=== PATIENT | female | born 1955 | race African-American/Black ===

== ENCOUNTER 2021-04-15 01:21 | Inpatient (IN) | payer MEDICARE, MEDICAID ==
[~2021-04-15] VITALS: Ht 162.6 cm; Wt 71.7 kg
[~2021-04-15 01:21] MED LIST: ASPI-1406; DOCU-138 PO; IBUP-779; SERT25TA74; SIMV-43; TOPUD
[2021-04-15 02:54] LABS: HEMATOCRIT. 39.1 % (36.0-48.0); HEMOGLOBIN. 12.9 g/dL (12.0-16.0); LYMPHOCYTES % 30.8 % (20.0-50.0); MEAN CORPUSCULAR HEMOGLOBIN 31.5 pg (28.0-32.0); MEAN CORPUSCULAR VOLUME 95.6 fL (81.0-99.0); MEAN PLATELET VOLUME 7.9 fl (7.4-10.4); MONOCYTES % 13.5 % (2.0-8.0); NEUTROPHILS % 51.7 % (40.0-76.0); PLATELET 260 x1000/uL (130-400); RED BLOOD CELL COUNT 4.09 mill/uL (4.2-5.4)
[2021-04-15 03:03] LABS: CHLORIDE 108 mEq/L (98-107)
[2021-04-15 03:35] LABS: CLARITY URINE CLEAR (CLEAR); COLOR URINE YELLOW (YELLOW); KETONES URINE NEGATIVE (NEGATIVE); LEUKOCYTE ESTERASE URINE NEGATIVE (NEGATIVE); NITRITE URINE NEGATIVE (NEGATIVE); OCCULT BLOOD URINE NEGATIVE (NEGATIVE); PH URINE 6.5 (4.5-8.0); PROTEIN URINE NEGATIVE (NEGATIVE); SPECIFIC GRAVITY URINE 1.008 (1.005-1.030)
[2021-04-15 03:42] LABS: INR 1.1; PROTHROMBIN TIME 11.9 sec (9.6-11.0)
[2021-04-15] MEDS ORDERED: MORPHINE SULFATE 4 MG/ML CPJ (NOT FOR IM USE) IV ONE (06:30)
[2021-04-15] MEDS ORDERED: MORPHINE SULFATE 2 MG/ML CPJ (NOT FOR IM USE) IV ONE (06:45)
[2021-04-15] MEDS ORDERED: IOHEXOL-350 100 ML BOTTLE ONE (07:38)
[2021-04-15] MEDS ORDERED: CEFTRIAXONE 1 G PREMIX 50 ML IV SCH (08:00)
[2021-04-15] MEDS ORDERED: AZITHROMYCIN 500MG/250ML 250 ML IV SCH (08:00)
[2021-04-15 14:55] VITALS: BP 113/77
[2021-04-15 16:00] VITALS: BP 113/77
[2021-04-15] MEDS ORDERED: CAPE500T15 MT (16:00)
[2021-04-15] MEDS ORDERED: OMEP20CA14 MT (16:00)
[2021-04-15] MEDS ORDERED: LEVA15HF6 IH (16:00)
[2021-04-15] MEDS ORDERED: TUCA150T PO (16:00)
[2021-04-15] MEDS ORDERED: ROSU5TAB MT (16:00)
[2021-04-15] MEDS ORDERED: ACETAMINOPHEN 325MG TABLET PO PRN ×3 (17:00→18:30)
[2021-04-15] MEDS ORDERED: IPRATROPIUM/ALBUTEROL 0.5-3(2.5)MG/3ML NEB HHN PRN (17:00)
[2021-04-15] MEDS: KETOROLAC 15MG/ML VIAL IV PRN ×2 (17:27→17:34)
[2021-04-15] MEDS: PANTOPRAZOLE SODIUM 40 MG/VIAL IV SCH ×2 (17:27→17:34)
[2021-04-15] MEDS: ENOXAPARIN 40MG/0.4ML SYR SUBCUT SCH (17:27)
[2021-04-15] MEDS ORDERED: DOCUSATE SODIUM 100MG CAPSULE PO PRN (18:30)
[2021-04-15] MEDS ORDERED: CLONIDINE 0.1MG TABLET PO PRN (18:30)
[2021-04-15] MEDS ORDERED: NITROGLYCERIN 0.4MG TABLET SL SL PRN (18:30)
[2021-04-15] MEDS ORDERED: GUAIFENESIN 200MG/10ML SUGAR FREE UDC PO PRN (18:30)
[2021-04-15] MEDS ORDERED: TRAMADOL 50MG TABLET PO PRN (18:30)
[2021-04-15] MEDS ORDERED: MAGNESIUM/ALUMINUM HYDROXIDE/SIMETHICONE 30ML UDC PO PRN (18:30)
[2021-04-15] MEDS ORDERED: ONDANSETRON HCL 4MG/2ML INJ IV PRN (18:30)
[2021-04-15] MEDS ORDERED: ZOLPIDEM TARTRATE 5MG TABLET PO PRN (18:30)
[2021-04-15] MEDS ORDERED: IPRATROPIUM/ALBUTEROL 0.5-3(2.5)MG/3ML NEB NEB PRN (18:30)
[2021-04-15 19:21] LABS: TOTAL IRON BINDING CAPACITY 483 ug/dL (250-450)
[2021-04-15 19:39] LABS: FOLIC ACID (FOLATE) SERUM 13.1 ng/mL (>5.38)
[2021-04-15 20:00] VITALS: BP 108/55
[2021-04-15] MEDS: LEVOFLOXACIN 750MG PREMIX 150 ML IV SCH (22:20)
[2021-04-15 23:02] LABS: *AMPHETAMINES SCREEN URINE NEGATIVE (NEGATIVE); *BARBITURATES SCREEN URINE NEGATIVE (NEGATIVE); *BENZODIAZEPINES SCREEN URINE NEGATIVE (NEGATIVE)
[2021-04-15 23:03] LABS: *COCAINE SCREEN URINE NEGATIVE (NEGATIVE); CANNABINOID URINE SCREEN NEGATIVE (NEGATIVE); METHADONE URINE SCREEN NEGATIVE (NEGATIVE); OPIATES URINE SCREEN PRESUMTIVE POSITIVE (NEGATIVE); PHENCYCLIDINE URINE SCREEN NEGATIVE (NEGATIVE)
[2021-04-15] MEDS ORDERED: POTASSIUM CHLORIDE 20MEQ/PACKET PO NR (23:15)
[2021-04-16] VITALS: BP 111/62
[2021-04-16] MEDS: KETOROLAC 15MG/ML VIAL IV PRN (00:05)
[2021-04-16 04:00] VITALS: BP 101/62
[2021-04-16 08:00] VITALS: BP 111/66
[2021-04-16] MEDS: PANTOPRAZOLE SODIUM 40 MG/VIAL IV SCH (08:18)
[2021-04-16] MEDS: ASPIRIN 325MG EC TABLET PO SCH (08:18)
[2021-04-16 08:32] LABS: BASOPHILS % 0.5 % (0.0-2.0); EOSINOPHILS % 2.8 % (0.0-5.0); HEMOGLOBIN. 13.6 g/dL (12.0-16.0); LYMPHOCYTES % 19.5 % (20.0-50.0); MEAN CORPUSCULAR HEMOGLOBIN 31.9 pg (28.0-32.0); MEAN CORPUSCULAR VOLUME 96.5 fL (81.0-99.0); MEAN PLATELET VOLUME 7.4 fl (7.4-10.4); MONOCYTES % 10.2 % (2.0-8.0); PLATELET 282 x1000/uL (130-400); RED BLOOD CELL COUNT 4.25 mill/uL (4.2-5.4); RED CELL DISTRIBUTION WIDTH 21.1 % (11.6-14.6)
[2021-04-16 08:40] LABS: CHLORIDE 107 mEq/L (98-107)
[2021-04-16 08:52] LABS: PHOSPHORUS 4.7 mg/dL (2.5-4.9)
[2021-04-16 08:53] LABS: LDL CHOLESTEROL 86 mg/dL (5-100)
[2021-04-16 08:54] LABS: CREATINE KINASE 81 IU/L (26-192); CREATINE KINASE MB FRACTION 1.9 ng/mL (0.5-3.6); HDL CHOLESTEROL 62 mg/dL (40-59)
[2021-04-16 12:00] VITALS: BP 110/65
[2021-04-16 16:00] VITALS: BP 105/63
[2021-04-16 16:39] LABS: CREATINE KINASE 75 IU/L (26-192)
[2021-04-16 16:41] LABS: CREATINE KINASE MB FRACTION 2.4 ng/mL (0.5-3.6)
[2021-04-16] MEDS: ENOXAPARIN 40MG/0.4ML SYR SUBCUT SCH (17:18)
[2021-04-16] MEDS ORDERED: NALOXONE HCL 0.4MG/ML VIAL IV PRN (17:30)
[2021-04-16] MEDS: LEVOFLOXACIN 750MG PREMIX 150 ML IV SCH (19:33)
[2021-04-16 20:00] VITALS: BP 98/60
[2021-04-17] VITALS: BP 95/68
[2021-04-17 04:00] VITALS: BP 95/52
[2021-04-17] MEDS: FAMOTIDINE 20MG TABLET PO SCH (07:57)
[2021-04-17] MEDS: ASPIRIN 325MG EC TABLET PO SCH (07:57)
[2021-04-17 08:00] VITALS: BP 95/63
[2021-04-17 12:00] VITALS: BP 102/61
[2021-04-17] MEDS: KETOROLAC 15MG/ML VIAL IV PRN (12:42)
[2021-04-17 16:00] VITALS: BP 100/62
[2021-04-17] MEDS: ENOXAPARIN 40MG/0.4ML SYR SUBCUT SCH (18:00)
[2021-04-17] MEDS: LEVOFLOXACIN 750MG PREMIX 150 ML IV SCH (19:46)
[2021-04-17 20:00] VITALS: BP 93/57
[2021-04-18] VITALS: BP 105/64
[2021-04-18 04:00] VITALS: BP 102/65
[2021-04-18 08:00] VITALS: BP 105/64
[2021-04-18] MEDS: FAMOTIDINE 20MG TABLET PO SCH (09:35)
[2021-04-18] MEDS: ASPIRIN 325MG EC TABLET PO SCH (09:35)
[2021-04-18 12:00] VITALS: BP 110/65
[2021-04-18] MEDS: ENOXAPARIN 40MG/0.4ML SYR SUBCUT SCH (18:00)
[2021-04-18 20:00] VITALS: BP 96/58
[2021-04-18] MEDS: LEVOFLOXACIN 750MG PREMIX 150 ML IV SCH (20:42)
[2021-04-18] MEDS: KETOROLAC 15MG/ML VIAL IV PRN (20:42)
[2021-04-19] VITALS: BP 103/66
[2021-04-19 04:00] VITALS: BP 102/62
[2021-04-19 08:09] VITALS: BP 106/67
[2021-04-19] MEDS: FAMOTIDINE 20MG TABLET PO SCH (08:15)
[2021-04-19] MEDS: ASPIRIN 325MG EC TABLET PO SCH (08:15)
[2021-04-19 11:43] VITALS: BP 106/57
== END 2021-04-19 12:35 | disposition home health service (06) | DRG 391 ==
LOC: ER 01:30 → EDBEDREQ 08:08 → 6WST 08:10 → EDBEDREQTM 08:13 → EDBEDREQ 08:13 → EDBEDREQSVC 08:13 → ENRESERV 13:50
PROVIDERS: ADMIT Internal Medicine; ATTEND Internal Medicine
DX: K29.70 Gastritis, unspecified, without bleeding (principal); J18.9 Pneumonia, unspecified organism; C78.00 Secondary malignant neoplasm of unspecified lung; R04.2 Hemoptysis; E87.6 Hypokalemia; E78.00 Pure hypercholesterolemia, unspecified; C50.919 Malignant neoplasm of unspecified site of unspecified female breast; Z88.0 Allergy status to penicillin; Z79.899 Other long term (current) drug therapy; Z79.51 Long term (current) use of inhaled steroids; Z79.82 Long term (current) use of aspirin; Z90.10 Acquired absence of unspecified breast and nipple; Z92.21 Personal history of antineoplastic chemotherapy
CPT/HCPCS: 36415; 71045; 71275; 74177; 80053; 80061; 80305; 81003; 82550; 82553; 82607; 82746; 83540; 83550; 83735; 83880; 84100; 84484; 85025; 87426; 93306; 93970; 97166; 99285; C9113; J0456; J0696; J1650; J1885; J1956; J2270; Q9967

== ENCOUNTER 2024-02-28 16:04 | Emergency (ER) | payer MEDICARE, MEDICAID ==
[~2024-02-28] VITALS: Ht 162.6 cm; Wt 56.0 kg
[~2024-02-28 16:04] MED LIST changes: +CAPE500T15 MT; +LEVA15HF6 IH; +OMEP20CA14 MT; +ROSU5TAB MT; +TUCA150T PO
[2024-02-28 16:08] VITALS: BP 133/74; PULSE 111; RESP 16; TEMP 98; O2SAT 97; O2SAT 99
[2024-02-28 17:20] LABS: BASOPHILS % 0.4 % (0.0-2.0); DIFFERENTIAL COMMENT 0; EOSINOPHILS % 1.1 % (0.0-5.0); HEMOGLOBIN. 12.1 g/dL (12.0-16.0); LYMPHOCYTES % 19.3 % (20.0-50.0); MEAN CORPUSCULAR HEMOGLOBIN 35.8 pg (28.0-32.0); MEAN CORPUSCULAR HGB CONC 33.6 g/dL (31.0-37.0); MEAN CORPUSCULAR VOLUME 106.3 fL (81.0-99.0); MEAN PLATELET VOLUME 7.4 fl (7.4-10.4); MONOCYTES % 10.9 % (2.0-8.0); NEUTROPHILS % 68.3 % (40.0-76.0); PLATELET 411 x1000/uL (130-400); RED BLOOD CELL COUNT 3.39 mill/uL (4.2-5.4); RED CELL DISTRIBUTION WIDTH 18.3 % (11.6-14.6); WHITE BLOOD COUNT 6.2 x1000/uL (4.5-11.0)
[2024-02-28 17:27] LABS: CHLORIDE 105 mEq/L (98-107); POTASSIUM 3.8 mEq/L (3.5-5.1); SODIUM 139 mEq/L (136-145)
[2024-02-28 17:28] LABS: CARBON DIOXIDE 26 mEq/L (21-32)
[2024-02-28 17:29] LABS: CALCIUM 10.3 mg/dL (8.7-10.4)
[2024-02-28 17:33] LABS: GLUCOSE 78 mg/dL (70-105)
[2024-02-28 17:34] LABS: UREA NITROGEN BLOOD 10 mg/dL (9-23)
[2024-02-28 17:35] LABS: ALANINE AMINOTRANSFERASE 10 IU/L (10-49); ALBUMIN 4.6 g/dL (3.2-4.8); ASPARTATE AMINOTRANSFERASE 30 IU/L (<34)
[2024-02-28 17:36] LABS: BILIRUBIN TOTAL 0.5 mg/dL (0.1-1.0); PROTEIN TOTAL 7.3 g/dL (6.0-8.3)
[2024-02-28 18:21] LABS: CLARITY URINE CLEAR (CLEAR); COLOR URINE YELLOW (YELLOW); GLUCOSE URINE 1+ (NEGATIVE); KETONES URINE TRACE (NEGATIVE); LEUKOCYTE ESTERASE URINE 1+ (NEGATIVE); NITRITE URINE NEGATIVE (NEGATIVE); OCCULT BLOOD URINE NEGATIVE (NEGATIVE); PH URINE 6.5 (4.5-8.0); PROTEIN URINE 1+ (NEGATIVE); SPECIFIC GRAVITY URINE 1.021 (1.005-1.030)
[2024-02-28 18:38] LABS: BACTERIA URINE TRACE; RBC URINE 0-2 /hpf (0-2); SQUAMOUS EPITHELIAL CELL URINE 1+ /lpf (RARE/1+)
[2024-02-28] MEDS ORDERED: NITR-87 MT (19:53)
== END 2024-02-28 20:08 | disposition home or self-care (01) ==
LOC: ER 16:04
DX: R51.9 Headache, unspecified (principal); N39.0 Urinary tract infection, site not specified; Z85.3 Personal history of malignant neoplasm of breast; Z88.0 Allergy status to penicillin; Z88.8 Allergy status to other drugs, medicaments and biological substances; Z79.899 Other long term (current) drug therapy; Z90.13 Acquired absence of bilateral breasts and nipples
CPT/HCPCS: 36415; 80053; 81003; 85025; 99284